=== PATIENT | male | born 1945 | race Caucasian/White ===

== ENCOUNTER 2016-06-03 14:36 | Inpatient (IN) | payer MEDICARE, BC ==
[2016-06-03 18:46] VITALS: BP 149/84
[2016-06-03] MEDS ORDERED: PROPRANOLOL HCL80 M4 PO (19:53)
[2016-06-03] MEDS ORDERED: SERTRALINE HYDR50 MG PO (19:54)
[2016-06-03] MEDS ORDERED: FLOMAX 0.40.4 MG/CAP PO (19:55)
[2016-06-03] MEDS ORDERED: ZOCOR40 M1 PO (19:56)
[2016-06-03] MEDS ORDERED: DESYREL 50MG50 MG PO (19:57)
[2016-06-03] MEDS ORDERED: ZESTORETIC 20-1 EACH PO (19:59)
[2016-06-03] MEDS ORDERED: LANTUS SOLOS100 U/ML SC (19:59)
[2016-06-03] MEDS ORDERED: NOVOLOG FLEX100 U/ML SC (20:01)
[2016-06-03 21:20] VITALS: BP 149/84
[2016-06-03 22:40] VITALS: BP 141/65
[2016-06-04 06:29] VITALS: BP 155/79
[2016-06-04 18:35] VITALS: BP 150/76
[2016-06-05 06:29] VITALS: BP 131/62
[2016-06-05 18:47] VITALS: BP 139/68
[2016-06-06 06:23] VITALS: BP 174/93
[2016-06-06 18:16] VITALS: BP 164/65
[2016-06-07 06:23] VITALS: BP 168/76
[2016-06-07] MEDS ORDERED: CETIRIZINE PO (09:59)
[2016-06-07] MEDS ORDERED: PROVENTIL0.09 MG/A1 IH (09:59)
[2016-06-07] MEDS ORDERED: BENZONATATE100 M1 PO (10:01)
[2016-06-07] MEDS ORDERED: ULTRAM50 M1 PO (10:01)
[2016-06-07] MEDS ORDERED: ZITHROMAX Z PA250 MG PO (10:02)
[2016-06-07] MEDS ORDERED: RANITIDINE HCL150 MG PO (10:27)
== END 2016-06-07 11:54 | disposition home health service (06) | DRG 560 ==
LOC: MED/SURG 14:36
PROVIDERS: ADMIT Physician Assistant
DX: Z47.89 Encounter for other orthopedic aftercare (principal); N17.9 Acute kidney failure, unspecified; Z68.41 Body mass index [BMI] 40.0-44.9, adult; M54.5 Low back pain; E11.9 Type 2 diabetes mellitus without complications; R12 Heartburn; J06.9 Acute upper respiratory infection, unspecified; J40 Bronchitis, not specified as acute or chronic; E78.5 Hyperlipidemia, unspecified; I10 Essential (primary) hypertension; M10.9 Gout, unspecified; N40.0 Benign prostatic hyperplasia without lower urinary tract symptoms; E66.01 Morbid (severe) obesity due to excess calories; Z79.4 Long term (current) use of insulin
CPT/HCPCS: J1815

== ENCOUNTER 2016-08-15 09:47 | Outpatient (RCR) | payer MEDICARE, BC ==
[~2016-08-15 09:47] MED LIST: BENZONATATE100 M1 PO; CETIRIZINE PO; DESYREL 50MG50 MG PO; FLOMAX 0.40.4 MG/CAP PO; LANTUS SOLOS100 U/ML SC; NOVOLOG FLEX100 U/ML SC; PROPRANOLOL HCL80 M4 PO; PROVENTIL0.09 MG/A1 IH; RANITIDINE HCL150 MG PO; SERTRALINE HYDR50 MG PO; ULTRAM50 M1 PO; ZESTORETIC 20-1 EACH PO; ZITHROMAX Z PA250 MG PO; ZOCOR40 M1 PO
== END 2016-10-01 07:43 | disposition home or self-care (01) ==
LOC: PT 09:47
DX: Z47.89 Encounter for other orthopedic aftercare (principal)

== ENCOUNTER → 2018-05-11 | Outpatient (CLI) | payer MEDICARE, BC | LOC: VAS 16:25 → RAD 17:45 → VAS 17:45 | DX: I07.1 Rheumatic tricuspid insufficiency (principal) ==